=== PATIENT | female | born 1975 | race Caucasian/White ===

== ENCOUNTER 2016-02-25 09:33 | Emergency (ER) | payer OTHER ==
[~2016-02-25] VITALS: Ht 165.1 cm; Wt 77.3 kg
[~2016-02-25 09:33] MED LIST: SERT100T9 PO; SUMA50TA2 PO
[2016-02-25 09:37] VITALS: BP 148/83; PULSE 107; RESP 16; O2SAT 98
--- NOTE | 2016-02-25 09:47 | ED.REPORT ---
HPI-Extremity Problem Lower Date of Service Feb 25, 2016 ED Provider: Michael Cassidy DO A 40 year old female presents to the ED complaining of a right ankle pain that began just prior to arrival. Patient reports that the ankle was inverted after she steeped over a ledge. The pain is exacerbated when the patient attempts to bear weight. She denies taking any medication. Patient has no other medical complaints at this time. Nursing Notes Stated Complaint: rt ankle injury Chief Complaint: Extremity Trauma Nursing Notes Reviewed: Yes Allergies: Coded Allergies: latex (Verified Allergy, Severe, ITCHING,CONTACT DERMATITIS, 03/15/15) Scheduled Sertraline HCl (Sertraline) 100 Mg Tablet 150 MG PO DAILY Sumatriptan Succinate (Sumatriptan Succinate) 50 Mg Tablet 50 MG PO PRN Scheduled PRN Naproxen (Naproxen) 500 Mg Tab 500 MG PO BID PRN PRN For Pain General Time Seen by MD: 09:44 Chief Complaint Ankle injury right Hx Obtained From: Patient Arrived By: Walk-in Onset Occurred: Just prior to arrival Symptom Duration: Since onset Caused by: Accidental Location: : Ankle right Quality: Painful Severity: Current: Moderate Severity: Maximum: Moderate Pertinent Negative: Pt denies other symptoms Exacerbated by: Movement Recent Healthcare: No recent doctor visit, No recent hospitalization Past Medical History Past Medical History Cervical myelopathy Bipolar PTSD Anxiety Chronic back pain Left lumbar radiculitis Sleep apnea Past Surgical History C5 through C7 anterior cervical discectomy and fusion with allograft, and C5 through [address] Riggs 12/20/2014 History of L4-L5 laminectomy and decompression Tubal ligation Smoking History Former Smoker Social History Alcohol Use: Denies alcohol use Drug Use: Denies drug use Other Social History: Good social support, , Local resident Ambulatory Status Independent Review of Systems Constitutional: Reports: Chills, Fever Musculoskeletal: Reports: Joint pain (right ankle ), Joint swelling (right ankle ) Neurologic: Reports: Problem walking (painful to bear weight), Denies: Change LOC Complete sys rev & neg: except as marked. Respiratory: Denies: Shortness of breath Cardiovascular: Denies: Chest pain GI: Denies: Abdominal pain, Nausea, Vomiting Physical Exam Initial Vital Signs Vital Signs (First) Date Time Temp Pulse Resp B/P Pulse Ox O2 Delivery O2 Flow Rate FiO2 02/25/16 09:37 36.2 107 16 148/83 98 Room Air Initial VS: Reviewed Head / Eyes: Atraumatic, Normocephalic, PERRL Upper Extremities: Vascular intact, Neuro intact, No swelling, No tenderness Skin: Warm, Dry, No cyanosis Neurologic: Alert, Oriented, Nonfocal Psychiatric: Mood/affect normal, Behavior normal, Normal thought content Lower Extremity / Pelvis / MS: Atraumatic, Neurologic intact, Vascular intact Ankle / Foot: Atraumatic, Neurologic intact, Vascular intact Right Ankle: Positive: Swelling present..., Tenderness present... General/Constitutional: Awake, Alert Respiratory / Chest: Atraumatic, Breath sounds NL, Breath sounds = bilat Cardiovascular: Heart rate NL, Regular rhythm, Heart sounds NL Interpretation & Diagnostics X-Ray Interpretation Xray Interpretation: IMPRESSION: No fracture. Lateral soft tissue swelling. Dictated by: Riky Johnston M.D. on 02/25/2016 at 10:49 X-Ray Ordered: Ankle right Interpretation / Wet Read by: Interpret - ED physician Procedures Splint Application - Fx Mgt Time: 10:57 Procedure Performed by: Nurse Post-Procedure / Complications: Cap refill normal, Post splint vascular nl, Post splint neuro nl, Condition improved, Tolerated procedure well, Patient stable Re-Eval/Medical Decision Re-Evaluation/Progress #1: Time of Eval: 10:15 Patient Status: Condition improved Re-Evaluation/Progress Note: Patient is rechecked. She confirms that she had her X-ray taken. Re-Evaluation/Progress #2: Time of Eval: 10:20 Patient Status: Condition improved Re-Evaluation/Progress Note: Patient is rechecked. She is informed of her X-ray results and diagnosis. All of the patient's questions are addressed. She understands and agrees with the treatment plan. Re-Evaluation/Progress #3: Time of Eval: 10:57 Patient Status: Condition improved Re-Evaluation/Progress Note: Patient is rechecked. Splint applied. Patient tolerated well. Counseled Regarding: Diagnosis, Need for follow-up, When/why to return to ED Discharge & Departure Impression: Primary Impression: Ankle sprain Encounter type: initial encounter Involved ligament of ankle: unspecified ligament Laterality: right Qualified Code: S93.401A - Sprain of unspecified ligament of right ankle, initial encounter Disposition: Home Discharge Condition All VS Reviewed: Yes Condition: Stable Patient Instructions: Ankle Sprain (ED) Additional Instructions: Thank you for trusting us with your care this morning. Your emergency department evaluation today included interview, examination, lab results and X- ray. Your results are reassuring that there is no fracture. Schedule a follow up appointment with your primary care provider in the next 2-3 days for a recheck. Please return to the emergency department for any new or worsening symptoms. Referrals: Jaimie Claire (PCP) Scribe Attestation Portions of this note were transcribed by Norman Batista. I, Dr. Cassidy personally performed the history, physical exam and medical decision-making; I reviewed and confirmed the accuracy of the information in the transcribed note. Signed by: Norman Batista, 02/25/16, 1108. copies to: Jaimie Claire Timothy S DO Feb 25, 2016 09:47 NORMAN BATISTA Feb 25, 2016 10:00
[2016-02-25] MEDS ORDERED: NPR500T PO (10:39)
--- NOTE | 2016-02-25 10:51 | DRSVH ---
PROCEDURE: X-RAY RIGHT ANKLE, MINIMUM THREE VIEWS ([id number]) INDICATIONS: twisted Right ankle, swollen, and painful TECHNIQUE: 3 views of the ankle were acquired. COMPARISON: None. FINDINGS: Bones: No fractures or dislocations. Ankle mortise is normally aligned. No suspicious bony lesions . Soft tissues: No tibiotalar joint effusion. Lateral soft tissue swelling. Achilles tendon appears n ormal. IMPRESSION: No fracture. Lateral soft tissue swelling. Dictated by: Riky Johnston M.D. on 02/25/2016 at 10:49 Approved by: Riky Johnston M.D. on 02/25/2016 at 10:49
[2016-02-25 11:04] VITALS: BP 148/83; PULSE 107; RESP 16; O2SAT 98
== END 2016-02-25 11:04 | disposition home or self-care (01) ==
LOC: SED 09:33
DX: S93.401A Sprain of unspecified ligament of right ankle, initial encounter (principal); X50.1XXA Overexertion from prolonged static or awkward postures, initial encounter; Y93.89 Activity, other specified; Y92.89 Other specified places as the place of occurrence of the external cause; Y99.8 Other external cause status; Z87.891 Personal history of nicotine dependence; Z91.040 Latex allergy status